=== PATIENT | female | born 1950 | race Caucasian/White ===

== ENCOUNTER 2016-12-03 16:32 | Inpatient (IN) | payer OTHER ==
[2016-12-03] MEDS ORDERED: NS 500 ML IV ONE (16:40)
--- NOTE | 2016-12-03 16:40 | EDPHY ---
H & P Stated Complaint: cp Time Seen by Provider: 12/03/16 16:39 HPI/ROS: HPI CHIEF COMPLAINT: Chest pain, chest tightness, neck tightness HISTORY OF PRESENT ILLNESS: This patient very pleasant 65-year-old female, presents to the emergency room with tightness across her chest. The chest tightness started around 5:00 a.m.. She just flew back from [place] she arrived in [place], [place] from to [place] at 5[place] to [place]. She has now had discomfort in her chest for 12 hours. 5:00 a.m. to 5:00 p.m.. This is diffuse chest discomfort. She describes it as a tightness in her chest. It does radiate up to her neck. She denies lightheadedness, nausea, vomiting, diaphoresis. She has never had anything like this before. No cardiac history. No PE or DVT history. Denies leg swelling calf pain. Denies pleuritic pain. does tell me she has slight shortness of breath with this. Past Medical History: No significant medical history except for mitral valve prolapse Past Surgical History:Partial hysterectomy Social History: Denies daily use of drugs alcohol tobacco products Family History: Noncontributory ROS REVIEW OF SYSTEMS: A comprehensive 10 point review of systems is otherwise negative aside from elements mentioned in the history of present illness. Exam Constitutional appears well nontoxic triage nursing summary reviewed, vital signs reviewed, awake/alert. Eyes normal conjunctivae and sclera, EOMI, PERRLA. HENT normal inspection, atraumatic, moist mucus membranes, no epistaxis, neck supple/ no meningismus, no raccoon eyes. Respiratory clear to auscultation bilaterally, normal breath sounds, no respiratory distress, no wheezing. Cardiovascular rate normal, regular rhythm, no murmur, no edema, distal pulses normal. Gastrointestinal soft, non-tender, no rebound, no guarding, normal bowel sounds, no distension, no pulsatile mass. Genitourinary no CVA tenderness. Musculoskeletal no midline vertebral tenderness, full range of motion, no calf swelling, no tenderness of extremities, no meningismus, good pulses, neurovascularly intact. Skin pink, warm, & dry, no rash, skin atraumatic. Neurologic awake, alert and oriented x 3, AAOx3, moves all 4 extremities equally, motor intact, sensory intact, CN II-XII intact, normal cerebellar, normal vision, normal speech. Psychiatric normal mood/affect. Heme/Lymph/Immune no lymphadenopathy. 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 She began full-dose aspirin and nitroglycerin to see if this improves her chest discomfort. Chest x-ray will be ordered. Re-evaluation: 1658: at this time I did receive this patient's EKG time of EKG 1653, this is sinus tachycardia rate of [address] elevation in the lateral leads V4 V5 V6 at 1 mm I do not appreciate significant reciprocal changes however in the setting of her complaining of chest tightness this is concerning for ischemia. I have called a cardiac alert at this time. EKG interpretation by me on record in [facility] system. Impression time of EKG 1653, this is sinus tachycardia rate of 107, ST elevation seen in V4, V5, V6 1 mm of elevation, do not appreciate any reciprocal changes. This EKG was done when patient was having active chest discomfort chest pain. 1705: Spoke with Dr. Elizabeth with Cardiology. He will come and evaluate the patient. Dr. Michaels with interventional cardiology notified. 1710: Dr. Michael Ivan is at bedside evaluating the patient at this time. 1719: Plans to take this patient to cardiac cath with Dr. Ivan. He has evaluated the patient. Patient is being consented at this time. Patient be transferred from the emergency room to catheterization suite with Dr. Ivan cardiac cath. Critical Care: Total Critical Care Time Spent Managing this Patient: 45Minutes. This time was spent Exclusively with this patient. This Care was exclusive of procedures. The Organ System/life at risk was cardiac This Patient was in Critical Condition because ST elevation FL. ED x-ray chest one view: Cannot exclude a right lower lobe pneumonia. Mediastinum narrow. Image interpreted by myself. 1729: this time patient is being taken to cardiac catheterization. Indication for cardiac catheterization is ST-elevation FL. Indication for cardiac catheterization emergently is chest pain with an ST elevation FL on EKG. Patient has been consented I did update the family at bedside which is her they both agree for cardiac catheterization. Source: Patient - Personal History Current Tetanus Diphtheria and Acellular Pertussis (TDAP): Yes - Medical/Surgical History Other PMH: mitral vavle prolapse, partial hysterectomy - Social History Smoking Status: Never smoked Constitutional: Initial Vital Signs Temperature (C) 37.0 C 12/03/16 16:35 Heart Rate 110 H 12/03/16 16:35 Respiratory Rate 16 12/03/16 16:35 Blood Pressure 133/90 H 12/03/16 16:35 O2 Sat (%) 96 12/03/16 16:35 O2 Delivery Mode Nasal Cannula O2 (L/minute) 2 Allergies/Adverse Reactions: Penicillins Allergy (Verified 12/03/16 16:34) Home Medications: Medication Instructions Recorded NK [No Known Home Meds] 12/03/16 Medical Decision Making - Data Points Laboratory Results: Laboratory Results 12/03/16 17:00 12/03/16 12/03/16 12/03/16 17:00 17:00 17:00 WBC 10.75 10^3/uL H 10^3/uL (3.80-9.50) RBC 4.62 10^6/uL 10^6/uL (4.18-5.33) Hgb 13.9 g/dL g/dL (12.6-16.3) Hct 41.7 % % (38.0-47.0) MCV 90.3 fL fL (81.5-99.8) MCH 30.1 pg pg (27.9-34.1) MCHC 33.3 g/dL g/dL (32.4-36.7) RDW 13.9 % % (11.5-15.2) Plt Count 243 10^3/uL 10^3/uL (150-400) MPV 9.1 fL fL (8.7-11.7) Neut % (Auto) 76.1 % H % (39.3-74.2) Lymph % (Auto) 15.3 % % (15.0-45.0) Williamson % (Auto) 7.0 % % (4.5-13.0) Eos % (Auto) 1.2 % % (0.6-7.6) Baso % (Auto) 0.1 % L % (0.3-1.7) Nucleat RBC Rel Count 0.0 % % (0.0-0.2) Absolute Neuts (auto) 8.18 10^3/uL H 10^3/uL (1.70-6.50) Absolute Lymphs (auto) 1.65 10^3/uL 10^3/uL (1.00-3.00) Absolute Monos (auto) 0.75 10^3/uL 10^3/uL (0.30-0.80) Absolute Eos (auto) 0.13 10^3/uL 10^3/uL (0.03-0.40) Absolute Basos (auto) 0.01 10^3/uL L 10^3/uL (0.02-0.10) Absolute Nucleated RBC 0.00 10^3/uL 10^3/uL (0-0.01) Immature Gran % 0.3 % % (0.0-1.1) Immature Gran # 0.03 10^3/uL 10^3/uL (0.00-0.10) PT 12.7 SEC SEC (12.0-15.0) INR 0.96 (0.83-1.16) APTT 28.1 SEC SEC (23.0-38.0) D-Dimer Pending Sodium Pending Potassium Pending Chloride Pending Carbon Dioxide Pending Anion Gap Pending BUN Pending Creatinine Pending Estimated GFR Pending Glucose Pending Calcium Pending Magnesium Pending Total Bilirubin Pending Conjugated Bilirubin Pending Unconjugated Bilirubin Pending AST Pending ALT Pending Alkaline Phosphatase Pending Troponin I Pending NT-Pro-B Natriuret Pep Pending Total Protein Pending Albumin Pending Lipase Pending Medications Given: Discontinued Medications Aspirin Buffered (Aspirin Ec) 325 mg PO EDNOW ONE Stop: 12/03/16 16:50 Last Admin: 12/03/16 17:18 Dose: Not Given Sodium Chloride (Ns) 500 mls @ 0 mls/hr IV ONCE ONE PRN Reason: As Directed Stop: 12/03/16 16:41 Last Admin: 12/03/16 16:40 Dose: 500 mls Nitroglycerin (Nitrostat) 0.4 mg SL EDNOW ONE Stop: 12/03/16 16:50 Last Admin: 12/03/16 17:18 Dose: 0.4 mg Departure - Departure Disposition: [facility] Inpatient Acute Clinical Impression: Chest pain Qualifiers: Chest pain type: unspecified Qualified Code(s): R07.9 - Chest pain, unspecified STEMI (ST elevation myocardial infarction) Qualifiers: Involved coronary artery: other coronary artery Qualified Code(s): I21.29 - ST elevation (STEMI) myocardial infarction involving other sites Condition: Critical
[2016-12-03] MEDS ORDERED: NITROGLYCERIN 0.4 MG BTL SL ONE (16:49)
[2016-12-03] MEDS ORDERED: ASPIRIN EC 325 MG TAB PO ONE (16:49)
--- NOTE | 2016-12-03 16:55 | CPEKG ---
Heart Rate: 107 RR Interval: 561 P-R Interval: 180 QRSD Interval: 80 QT Interval: 328 QTC Interval: 438 P [place]: 77 QRS [place]: 44 T Wave [place]: 75 EKG Severity - ABNORMAL ECG - EKG Impression: SINUS TACHYCARDIA EKG Impression: BORDERLINE R WAVE PROGRESSION, ANTERIOR LEADS EKG Impression: ST ELEVATION SUGGESTS PERICARDITIS Electronically Signed By: Adelfo Conley 03-Dec-2016 22:46:52
[2016-12-03 17:15] LABS: % IMMATURE GRANULYOCYTES 0.3 % (0.0-1.1); ABSOLUTE IMMATURE GRANULOCYTES 0.03 10^3/uL (0.00-0.10); ADD DIFF? NO; ADD MORPH? NO; ADD SCAN? NO; ATYPICAL LYMPHOCYTE FLAG 10 (0-99); FRAGMENT RBC FLAG 0 (0-99); HEMATOCRIT 41.7 % (38.0-47.0); HEMOGLOBIN 13.9 g/dL (12.6-16.3); LEFT SHIFT FLG 0 (0-99); LIPEMIA HEMOLYSIS FLAG 80 (0-99); MEAN CELL HEMOGLOBIN 30.1 pg (27.9-34.1); MEAN CELL HEMOGLOBIN CONCENTR. 33.3 g/dL (32.4-36.7); MEAN CELL VOLUME 90.3 fL (81.5-99.8); MEAN PLATELET VOLUME 9.1 fL (8.7-11.7); PLATELET CLUMPS FLAG 10 (0-99); PLATELET COUNT 243 10^3/uL (150-400); RED BLOOD CELL COUNT 4.62 10^6/uL (4.18-5.33); RED CELL DISTRIBUTION WIDTH 13.9 % (11.5-15.2)
[2016-12-03] MEDS ORDERED: LIDOCAINE 1% 30 ML SDV ONE (17:16)
[2016-12-03] MEDS ORDERED: fentaNYL 100 MCG/2 ML INJ ONE (17:16)
[2016-12-03] MEDS ORDERED: MIDAZOLAM 2 MG/2 ML VIAL ONE ×2 (17:17→18:03)
[2016-12-03] MEDS ORDERED: IOPAMIDOL (ISOVUE 370) 100 ML BTL IV ONE (17:17)
[2016-12-03 17:22] LABS: INR 0.96 (0.83-1.16); PROTIME(PATIENT) 12.7 SEC (12.0-15.0)
[2016-12-03 17:23] LABS: APTT 28.1 SEC (23.0-38.0)
[2016-12-03 17:28] LABS: ALANINE AMINOTRANSFERASE 34 IU/L (9-52); ALBUMIN 4.3 g/dL (3.5-5.0); ALKALINE PHOSPHATASE 86 IU/L (38-126); ANION GAP 8 mEq/L (8-16); ASPARTATE AMINOTRANSFERASE 56 IU/L (14-46); BILIRUBIN,TOTAL 0.8 mg/dL (0.1-1.4); BILIRUBIN-CONJUGATED 0.4 mg/dL (0.0-0.5); BILIRUBIN-UNCONJUGATED 0.4 mg/dL (0.0-1.1); CALCIUM 9.3 mg/dL (8.5-10.4); CARBON DIOXIDE 26 mEq/l (22-31); CHLORIDE 101 mEq/L (97-110); CREATININE 0.7 mg/dL (0.6-1.0); GLOMERULAR FILTRATION RATE > 60; GLUCOSE 111 mg/dL (70-100); MAGNESIUM 1.9 mg/dL (1.6-2.3); POTASSIUM 3.9 mEq/L (3.5-5.2); SODIUM 135 mEq/L (134-144); TOTAL PROTEIN 6.9 g/dL (6.3-8.2)
[2016-12-03] MEDS ORDERED: ATROPINE SULFATE 1 MG/10 ML SYR IVP PRN (18:20)
[2016-12-03] MEDS ORDERED: NITROGLYCERIN 0.4 MG BTL SL PRN (18:20)
[2016-12-03] MEDS ORDERED: ONDANSETRON 4 MG/2 ML VIAL IVP PRN (18:20)
[2016-12-03] MEDS ORDERED: ONDANSETRON DISINTEGRATING 4 MG TAB PO PRN (18:20)
[2016-12-03] MEDS ORDERED: NS 1,000 ML IV SCH (18:30)
--- NOTE | 2016-12-03 19:02 | CPIP ---
[f rep st] INVASIVE CARDIAC PROCEDURE DATE OF PROCEDURE: 12/03/2016 PROCEDURE PERFORMED: 1. Selective coronary angiography. 2. Left heart catheterization. 3. Left ventriculogram. 4. Angio-Seal arteriotomy repair. COMPLICATIONS: None. INDICATION FOR THE PROCEDURE: Abnormal EKG and chest pain with elevated troponin in a patient statu s post recent travel and stress. PROCEDURE IN DETAIL: After informed consent was obtained and n.p.o. status was confirmed, the regio n of the right groin was cleaned, prepped, and draped in sterile fashion. Approximately 5 cc of 1% lidocaine was utilized for local anesthesia. A micropuncture set was used to gain access to the rig ht common femoral artery with single entry puncture of the vessel. The patient then underwent the p reviously mentioned diagnostic procedure with use of JL4 and Alphacurve curve coronary catheters as well as a 6-Syriac pigtail catheter. Standard wire exchange technique was utilized for all catheter exchanges. The left main coronary lumen is approximately 7 mm in size. It trifurcates into an LAD, small ramus , and circumflex vessel. The LAD is a prominent vessel 3.5 in size, and wraps around the anterior a pex without flow-limiting obstruction, dissection or thrombus. Likewise, the diagonal system, ramus intermedius, circumflex, obtuse marginal system all demonstrate excellent RANGEL-3 flow. The right c oronary artery is non dominant and approximately 2.5 mm in size, again with RANGEL-3 flow. The patient underwent left heart catheterization demonstrating elevated left ventricular end-diastol ic pressure measured at 29 mmHg. The patient underwent left ventriculogram in the SMITH projection demonstrating severely depressed lef t ventricular ejection fraction with the entire anterior wall, apex, and distal inferior wall involv ed with severe hypokinesis in the classic pattern known as Takotsubo cardiomyopathy. Ejection fract ion estimated to be 20% to 25%. Only the base of the heart appears to be dipak normally. The re is some motion at the very tip of the heart, and there is no evidence of any apical filling defec t to suggest a clot. FINDINGS/IMPRESSION: Acute chest pain syndrome related to apical ballooning cardiomyopathy. /[id number]/MODL
--- NOTE | 2016-12-03 19:08 | GHP ---
[f rep st] HISTORY AND PHYSICAL DATE OF ADMISSION: 12/03/2016 HISTORY OF PRESENT ILLNESS: The patient is a 65-year-old, previously healthy lady who presented to the emergency room after a visit to her next-door neighbor's office for complaints of chest pain. S he was on a trip to the [facility] earlier this week and was supposed to return home today. They had s ome trouble getting to the airport and were running very late. As she was running through the airpo rt around 5 this morning she began to experience chest pressure and tightness that radiated into her neck and jaw. This remained at approximately 4/10 throughout the day and was associated with short ness of breath and palpitations. Ultimately, the patient returned home. Dr. Nusrat Chavarria was out of the office who is her usual physician, so she went to her next-door neighbor's office, Dr. Madi jarrell, who recommended she have an EKG. This was found to be abnormal and the patient was taken to the hospital for further evaluation. I was called to see the patient for a cardiac alert in progress. At the time my evaluation, the pat ient continues to complain of 4/10 chest discomfort and has obvious ST-segment abnormalities, mainly confined to I aVL, V3, V4, V5, and V6, consistent with apical and lateral injury pattern. PHYSICAL EXAMINATION: VITAL SIGNS: Her blood pressure was 133/90, heart rate 110 and regular with sinus rhythm on the monitor, respiratory rate 16, oxygen saturation 96% on room air, temperature 37 degrees. NECK: No JVD or carotid bruit. HEART: Normal S1, S2 with a summation S3 and S4 gallop. LUNGS: Clear to auscultation without wheezes, rales, or rhonchi. ABDOMEN: Benign with positive b owel sounds. It is nondistended and nontender. EXTREMITIES: Warm, dry, well perfused without sign ificant peripheral edema. Her hands and feet are somewhat cold LABS: White count 10.75, H and H 13.9 and 41.7. Neutrophils are 76.1. Coags are normal with a D-d trenton of 0.46. PT/INR of 12.7, 0.96. Her blood chemistries reveal a nonfasting glucose of 111, pota ssium 3.9, BUN/creatinine 15 and 0.7. AST was mildly elevated at 56. Troponin I 4.160 ng/mL and N- terminal proBNP of 1980. Protein and albumin as well as lipase were normal. IMPRESSION AND PLAN: Subacute chest pain syndrome with EKG changes suggestive of injury. I have re commended the patient proceed immediately to cardiac catheterization to rule out flow-limiting obstr uction of her coronary as well as a thrombus of one or more of her epicardial vessels. On the diffe rential diagnosis is included pericarditis, myocarditis, and takotsubo, cardiomyopathy. /[id number]/MODL
[2016-12-03] MEDS ORDERED: METOPROLOL TARTRATE 25 MG TAB PO SCH (21:00)
[2016-12-04] MEDS ORDERED: DOPamine/DEXTROSE/250 ML BAG IV ONE (01:39)
[2016-12-04 06:12] LABS: TROPONIN I 3.53 ng/mL (0-0.034)
[2016-12-04] MEDS ORDERED: LISINOPRIL 2.5 MG TAB PO SCH (09:00)
[2016-12-04] MEDS ORDERED: LISINOPRIL 5 MG TAB PO SCH (09:00)
--- NOTE | 2016-12-04 17:01 | PDCARPN ---
Cardiology Progress Note Chief Complaint: fatigued no more chest pain Assessment/Plan: Assessment/Plan: 1. 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 Her acute chest pain has resolved though she continues to be very tired and fatigued. Troponin this morning was 3.5 ng/mL. Telemetry revealed sinus tachycardia with T wave inversions. There was no evidence of tachydysrhythmia on overnight monitoring. I discontinued her Lisinopril and transferred to PCU where she will be monitored overnight. She will need an echocardiogram to be performed in the morning for analysis of her wall motion and ejection fraction. If improved and depending on clinical status, consider discharge at that point in time. I counseled her today on the importance of maintaining a low stress environment over the next few weeks. She should not exercise for at least 10 days and will need to schedule a follow up appointment in the clinic. Ultimately I would like to repeat her echocardiogram in 8-12 weeks to insure romaine t her ejection fraction has returned to baseline. Subjective: I no longer have chest pain although I am still very fatigued and generally tired Reviewed/Discussed With: family, multidisciplinary team Time Spent With Patient: 15 minutes Objective: Vital Signs (8 Hrs) Temp Pulse Resp BP Pulse Ox 12/04/16 16:00 37.2 C 98 20 89/57 L 92 12/04/16 15:00 103 H 23 H 90/63 L 92 12/04/16 14:00 111 H 21 H 99/61 L 95 12/04/16 13:00 110 H 21 H 100/65 94 12/04/16 12:00 37.4 C 98 22 H 104/67 98 12/04/16 11:00 105 H 20 94/58 L 98 12/04/16 10:00 111 H 20 91/54 L 96 12/04/16 09:00 110 H 18 89/55 L 97 Intake/Output (24 Hrs) 12/03/16 12/04/16 12/05/16 05:59 05:59 05:59 Intake Total 902 Balance 902 Intake: Oral (ml) 250 IV Infused (ml) 652 DOPamine/DEXTROSE 250 ml 26 @ Titrate IV CONT KEYLA Rx# :[id number] Ns 1,000 ml @ 100 mls/hr 626 IV CONT KEYLA Rx#: [id number] Other: Weight 68 kg Number of Voids Toilet 3 Result Diagrams: 12/03/16 17:00 12/03/16 17:00 Cardiac Labs: Cardiac Lab Results (72 Hrs) 12/04/16 05:32 Troponin I 3.530 H Telemetry: Normal sinus rhythm with T wave inversions - Physical Exam Constitutional: no apparent distress, other (fatigued) Eyes: anicteric sclera Cardiovascular: other (s3 s4 gallop, tachycardia) Peripheral Pulses: 2+: carotid (R), carotid (L), femoral (R), femoral (L), dorsalis-pedis (R), dorsalis-pedis (L) Respiratory: clear to auscultate bilat, no crackles, no wheezes Gastrointestinal: normoactive bowel sounds Skin: warm Neurologic: AAOx3, CN II-XII grossly intact Psychiatric: cooperative, interactive, following commands, not anxious - . Pending Discharge Within 24 Hours: Yes ICD10 Worksheet Patient Problems: Problems Problem Status Onset Chest pain Acute STEMI (ST elevation myocardial infarction) Acute
[2016-12-04] MEDS: ACETAMINOPHEN 325 MG TAB PO PRN (17:06)
[2016-12-05] MEDS ORDERED: PERFLUTREN LIPID MICROSPHERES 1.1 MG/ML VIAL IV ONE (10:30)
--- NOTE | 2016-12-05 10:47 | ECHO ---
[id number] + + [id number] : : [place] [address] : : [phone] + + Adult Echocardiographic Report + + :Name: JADEN GLOVER LStudy Date: 12/05/2016 08:24 AM : : Hospital Admission Number: [id number] : :: 1950 Gender: Female Height: 68 in : :Age: 65 yrs Race: WH Weight: 149 lb : :Reason For Study: Takotsubo : : BSA: 1.8 meters2: :History: MVP 30 years ago : + + MMode/2D Measurements \T\ Calculations LVIDd: 5.1 cm EDV(Teich): Ao root diam: LVLd ap4: 7.1 cm 124.7 ml 3.2 cm EDV(MOD-sp4): LA dimension: 67.0 ml 3.3 cm LVLs ap4: 6.8 cm ESV(MOD-sp4): 38.0 ml EF(MOD-sp4): 43.3 % SV(MOD-sp4): 29.0 ml Normal Measurement Values: + + :LVIDd (3.5-5.7cm) IVSd (0.6-1.1cm) LVPWd (0.6-1.1cm) Aortic Root (2.0-3.7cm)Left Atrium (1.5-4.0cm): :LV Vol(d) (76-115ml) LV Vol(s) (29-48ml) Ejec Fraction (50-65%)PV Leodan (0.6- 1.2m/s) TV Leodan (0.4-1.0m/s) : :MV E Leodan (0.8-1.0m/s)MV A Leodan (0.3-1.0m/s)LVOT Leodan (0.7-1.2m/s) Asc Ao Leodan ( 0.9-1.8m/s) : + + Doppler Measurements \T\ Calculations MV E max leodan: 82.4 cm/sec Ao V2 max: 112.7 cm/sec TR max leodan: 297.3 cm/sec MV A max leodan: 97.7 cm/sec Ao max P.1 mmHg TR max P.3 mmHg MV E/A: 0.84 RAP systole: 10.0 mmHg RVSP(TR): 45.3 mmHg Left Ventricle The left ventricle is normal in size. No LV apical thrombus. There is normal left ventricular wall thickness. Ejection Fraction = 30%. Wall motion is c/w a takotsubo cardiomyopathy. Right Ventricle The right ventricle is normal in size and function. Atria The left atrial size is normal. Right atrial size is normal. Mitral Valve The mitral valve is normal in structure and function. There is no evidence of mitral valve prolapse. There is no mitral valve stenosis. There is trace mitral regurgitation. Tricuspid Valve Normal tricuspid valve. There is moderate tricuspid regurgitation. Right ventricular systolic pressure is 41-46mmHg. There is Doppler evidence for mild pulmonary hypertension. Aortic Valve The aortic valve is not well seen but appears trileaflet. There is no aortic stenosis. Trace to mild aortic regurgitation. Pulmonic Valve The pulmonic valve is not well visualized. There is no pulmonic valvular regurgitation. Great Vessels The aortic root is normal size. Conclusion A complete two-dimensional transthoracic echocardiogram was performed (2D, M-mode, Doppler and color flow Doppler). .1mg of Definity injected for endocardial border enhancement. 1. The left ventricle is normal in size with reduced systolic function. The Ejection Fraction = 30%. Wall motion is c/w a takotsubo cardiomyopathy. 2. The mitral valve is normal in structure and function. There is trace mitral regurgitation. 3. The aortic valve is not well seen but appears trileaflet. There is no aortic stenosis. Trace to mild aortic regurgitation. 4. There is Doppler evidence for mild pulmonary hypertension. Right ventricular systolic pressure is 41-46mmHg. 5. No old studies for comparison. Final Reading Physician: Lamin Michaels MD electronically signed on 12/05/2016 10:45 AM Ordering Physician: Michael Ivan Performed By: Yoli Merino, ABRAHAMCS
[2016-12-05] MEDS: ACETAMINOPHEN 325 MG TAB PO PRN (11:19)
[2016-12-05] MEDS ORDERED: CARVEDILOL 3.125 MG TAB PO SCH (11:30)
[2016-12-05 13:13] VITALS: BP 97/61; PULSE 95; RESP 27; TEMP 98.6; O2SAT 95
--- NOTE | 2016-12-05 14:59 | GDS ---
[f rep st] DISCHARGE SUMMARY DISCHARGE DIAGNOSES: Takotsubo cardiomyopathy. The patient presented with a chest pain syndrome as sociated with EKG changes. She was taken to the cardiac catheterization laboratory for risk stratif ication. Coronary angiography demonstrated no significant obstructive disease involving the coronar y arteries. Left ventriculography, however, was notable for a takotsubo cardiomyopathy with an ejec tion fraction of 20% to 25%. The patient was started on beta-elo therapy, however ANIBAL inhibitor was not initiated secondary to low blood pressure. Followup echocardiogram demonstrated a slight i mprovement in her left ventricular systolic function with an estimated ejection fraction of 30%. Th e patient will follow up with Dr. Ivan in approximately 2 weeks period of time for evaluation. Sh e will also have a followup echocardiogram performed in approximately 2 months period of time to margarita luate left ventricular systolic function. SUMMARY PRESENTATION AND COURSE: The patient is a 65-year-old female with limited past medical hist ory, who presented to the emergency department on 12/03/2016 with symptoms of chest pain. Her EKG d emonstrated lateral ST and T-wave changes. She was taken to the cardiac catheterization laboratory for further evaluation. Coronary angiography demonstrated no significant flow limiting coronary art byron disease. Left ventriculography however was notable for a takotsubo cardiomyopathy with an eject ion fraction of 20% to 25%. The patient was admitted to the hospital for further observation post c ardiac catheterization. Postprocedure day #1, she has felt sluggish and tired. By post procedure day #2, she felt back to her normal baseline. Telemetry monitoring during this period demonstrated no significant arrhythmias. At the time of discharge, sonja finn was ambulating without difficulty. She denied symptoms of orthopnea and PND. She was initia travis on beta-elo therapy, Coreg 3.125 mg b.i.d., however, an ANIBAL inhibitor was not started second aubree to low blood pressures. PHYSICAL EXAMINATION: At time of discharge: GENERAL: Patient is resting comfortably in bed. VITAL SIGNS: Temperature afebrile, pulse is 95, b lood pressure 97/61, respiratory rate 16, SaO2 95% on 1 L nasal cannula. LUNGS: Clear to auscultat ion bilaterally. CARDIOVASCULAR: Regular rate and rhythm. S1, S2. No murmurs, rubs, or gallops a ppreciated. ABDOMEN: Soft, nontender. Normoactive bowel sounds. EXTREMITIES: Right inguinal acc ess site. No hematoma, no ecchymosis, 2+ dorsalis pedis pulse. EXTREMITIES: No clubbing, cyanosis , or edema. NEURO: Patient awake, alert, and oriented x3. LABORATORY: At the time of discharge: Sodium 135, potassium 3.9, chloride 101, CO2 26, BUN 15, cre atinine 0.7. The patient's peak troponin was 4.16. White blood cell count 10.75, hemoglobin 13.9, hematocrit 41.7. Platelet count 243. ARRANGEMENTS FOR FOLLOWUP CARE: 1. Patient will follow up with Dr. Ivan at [facility], in approximately 2 weeks period of time . 2. Patient will require followup echocardiogram in approximately 2 months period of time to evaluat e left ventricular systolic function. 3. Patient should return to the emergency department for groin complications as outlined at the jasen e of discharge. DISCHARGE MEDICATIONS: Please see medicine reconciliation form. /[id number]/MODL
== END 2016-12-05 15:00 | disposition home or self-care (01) | DRG 287 ==
LOC: F2N 18:08
PROVIDERS: ADMIT Internal Medicine Cardiovascular Disease; ATTEND Internal Medicine Cardiovascular Disease
PROC: 4A023N7 Measurement of Cardiac Sampling and Pressure, Left Heart, Percutaneous Approach (ICD-10-PCS; principal; 2016-12-03)
PROC: B2111ZZ Fluoroscopy of Multiple Coronary Arteries using Low Osmolar Contrast (ICD-10-PCS; principal; 2016-12-03)
PROC: B2151ZZ Fluoroscopy of Left Heart using Low Osmolar Contrast (ICD-10-PCS; principal; 2016-12-03)
DX: I51.81 Takotsubo syndrome (principal); I25.10 Atherosclerotic heart disease of native coronary artery without angina pectoris
CPT/HCPCS: C1760; J1265; J1644; J2250; J2405; J3010; Q9957; Q9967